=== PATIENT | male | born 1995 | race Two or more races ===

== ENCOUNTER → 2020-09-17 | Outpatient (CLI) | payer OTHER ==
--- NOTE | 2020-09-17 15:51 | REP ---
INDICATION: POSSIBLE NON UNION AND MALUNION LEFT LEG. COMPARISON: None. TECHNIQUE: Axial CT left lower leg with sagittal and coronal reconstruction images. FINDINGS: There is an intramedullary virgilio in the tibia fixed by metallic screws. There is no abnormal lucency at the interface with adjacent bone. There is a metallic plate fixed by multiple metallic screws in the distal fibula. The osseous structures are well-aligned. In the distal 3rd of the tibial shaft there is a fracture which is incompletely healed. There is a persistent nondisplaced linear fracture line visualized posteromedially. In the adjacent distal 3rd of the fibular shaft there is a nondisplaced oblique fracture which demonstrates advanced healing and bridging callus formation. The fracture line is vaguely visualized. IMPRESSION: Metallic internal fixation as above. In the distal 3rd of the tibial shaft there is incomplete healing of a nondisplaced fracture. There is bridging healing callus formation laterally, with a persistent nondisplaced fracture line medially without bridging callus. In the distal 3rd of the fibular shaft there is advanced healing of an oblique nondisplaced fracture with bridging callus formation. <Electronically signed by Alan Min > 09/17/20 [id number]
== END ==
LOC: M RAD 14:49
PROVIDERS: ATTEND Physician Assistant Surgical
DX: Z47.89 Encounter for other orthopedic aftercare (principal)